=== PATIENT | female | born 1935 | race African-American/Black ===

== ENCOUNTER 2017-09-30 14:04 | Emergency (ER) | payer MEDICARE, MEDICAID ==
[2017-09-30 14:56] LABS: #Basophils 0.1 thou/uL (0.0-0.2); #Eosinphils 0.3 thou/uL (0.0-0.7); #Lymphocytes 2.3 thou/uL (1.20-3.40); #Monocytes 0.9 thou/uL (0.11-0.59); #Neutrophils 7.5 thou/uL (1.40-6.50); %Basophils 1.3 % (0.0-1.0); %Eosinophils 2.3 % (0.0-10.0); %Lymphocytes 20.6 % (21.0-51.0); %Monocytes 8.5 % (0.0-10.0); %Neutrophils 67.3 % (42.0-75.0); Hemoglobin 11.6 g/dL (12.0-16.0); Mean Corpuscular HGB CONC 33.4 g/dL (32.0-36.0); Platelet Count 205 thou/uL (130-400); Red Blood Cell (RBC) Count 3.99 mill/uL (4.20-5.40); White Blood Cell (WBC) Count 11.2 thou/uL (4.8-10.8)
[2017-09-30 15:02] LABS: INR-International Normal Ratio 1.1; PTT 26.9 SEC (22.9-36.1)
[2017-09-30 15:18] LABS: ALT (SGPT) 10 U/L (8-55); AST (SGOT) 18 U/L (5-34); Albumin 4.1 g/dL (3.4-4.8); Alkaline Phosphatase 59 U/L (40-150); Anion Gap 14 mmol/L (10-20); BUN (Urea Nitrogen) 20 mg/dL (9.8-20.1); Bilirubin, Total 0.3 mg/dL (0.2-1.2); Calc. Creatinine Clearance 0 mL/min (70-130); Calcium 10.2 mg/dL (7.8-10.44); Carbon Dioxide 26 mmol/L (23-31); Chloride 106 mmol/L (98-107); Estimated GFR-MDRD 59; Globulin 3.5 g/dL (2.4-3.5); Glucose 152 mg/dL (83-110); Potassium 4.6 mmol/L (3.5-5.1); Protein, Total 7.6 g/dL (6.0-8.3); Sodium 141 mmol/L (136-145)
[2017-09-30 15:22] LABS: CKMB 0.8 ng/mL (0-6.6); Troponin I Less than 0.010 ng/mL (< 0.028)
--- NOTE | 2017-09-30 15:27 | CT ---
CT HEAD NONCONTRAST: HISTORY: TIA. Altered mental status. FINDINGS: No comparison. There is no evidence of acute intracranial hemorrhage or infarct. Mild diffuse corti anjum atrophy and chronic ischemic small-vessel disease are apparent. There is no mass effect or shift of midline structures. Visualized paranasal sinuses remain well aerated. IMPRESSION: No acute intracranial abnormalities are demonstrated on noncontrast CT head. POS: [facility]
[2017-09-30] MEDS ORDERED: Acetaminophen 500 MG TAB ONE (16:39)
--- NOTE | 2017-09-30 16:44 | RAD ---
CHEST ONE VIEW 09/30/17 HISTORY: Numbness. COMPARISON: None. FINDINGS: Heart size is upper limits of normal. No focal air space consolidation, pneumothorax or effusion. No acute osseous abnormality. IMPRESSION: No acute intrathoracic abnormality. POS: [facility]
--- NOTE | 2017-09-30 16:47 | RAD ---
PELVIS ONE VIEW: 09/30/17 HISTORY: Right sided hip pain. COMPARISON: None. FINDINGS: Moderate to severe right sided degenerative disease of the hip. Moderate left sided degenerative dise ase. Mild degenerative disease of the SI joints and pubic symphysis. Moderate spondylosis lower lumba r spine. IMPRESSION: Moderate to severe right and moderate left sided hip degenerative changes. POS: [facility]
== END 2017-09-30 17:55 | disposition home or self-care (01) ==
LOC: ERS 14:04
DX: R29.898 Other symptoms and signs involving the musculoskeletal system (principal); M25.551 Pain in right hip; E11.9 Type 2 diabetes mellitus without complications; E78.5 Hyperlipidemia, unspecified; I10 Essential (primary) hypertension; Z87.891 Personal history of nicotine dependence; M19.90 Unspecified osteoarthritis, unspecified site; Z86.73 Personal history of transient ischemic attack (TIA), and cerebral infarction without residual deficits; Z79.4 Long term (current) use of insulin; Z79.899 Other long term (current) drug therapy
CPT/HCPCS: 36415; 36416; 70450; 71045; 72170; 80053; 82553; 84484; 85025; 85610; 85730; 93005

== ENCOUNTER 2017-10-01 17:44 | Inpatient (IN) | payer MEDICARE, MEDICAID ==
[2017-10-01 18:19] LABS: #Basophils 0.1 thou/uL (0.0-0.2); #Eosinphils 0.3 thou/uL (0.0-0.7); #Lymphocytes 3.1 thou/uL (1.20-3.40); #Neutrophils 5.8 thou/uL (1.40-6.50); %Basophils 1.1 % (0.0-1.0); %Lymphocytes 30.2 % (21.0-51.0); %Monocytes 9.6 % (0.0-10.0); %Neutrophils 56.2 % (42.0-75.0); Mean Corpuscular HGB CONC 32.4 g/dL (32.0-36.0); Mean Corpuscular Hemoglobin 28.1 pg (27.0-31.0); Mean Corpuscular Volume 86.8 fl (81.0-99.0); Mean Platelet Volume 9.9 fL (7.4-10.4); Platelet Count 210 thou/uL (130-400); Red Blood Cell (RBC) Count 3.92 mill/uL (4.20-5.40); White Blood Cell (WBC) Count 10.4 thou/uL (4.8-10.8)
[2017-10-01 18:25] LABS: INR-International Normal Ratio 1.1; PTT 25.4 SEC (22.9-36.1); Prothrombin Time 13.9 SEC (12.0-14.7)
[2017-10-01 18:40] LABS: ALT (SGPT) 11 U/L (8-55); AST (SGOT) 19 U/L (5-34); Alkaline Phosphatase 86 U/L (40-150); Anion Gap 15 mmol/L (10-20); BUN (Urea Nitrogen) 22 mg/dL (9.8-20.1); Bilirubin, Total 0.2 mg/dL (0.2-1.2); CK (CPK) 126 U/L (29-168); Calc. Creatinine Clearance 0 mL/min (70-130); Calcium 9.9 mg/dL (7.8-10.44); Carbon Dioxide 24 mmol/L (23-31); Chloride 107 mmol/L (98-107); Estimated GFR-MDRD 48; Globulin 3.4 g/dL (2.4-3.5); Glucose 118 mg/dL (83-110); Potassium 4.1 mmol/L (3.5-5.1); Protein, Total 7.4 g/dL (6.0-8.3); Sodium 142 mmol/L (136-145)
[2017-10-01 18:42] LABS: CKMB 1.2 ng/mL (0-6.6); Troponin I Less than 0.010 ng/mL (< 0.028)
--- NOTE | 2017-10-01 18:56 | PDOC.FPRHP ---
- History of Present Illness Chief Complaint: R sided numbness and weakness History of Present Illness: This is an 82 y/o F with PMHx of HTN, HLD, DM2, and prior CVA in 2016 who presents to the ED due to R sided weakness and numbness. The patient reports that on she began having numbness on her R face, arm, and leg, but it has gotten progressively worse. She has also developed weakness in her R leg and slurred speech. The patient also reports feeling like there is a film over her eyes. She is unable to walk well anymore due to this weakness. She came to the ED yesterday and had a CT scan done, but there were no deficits at that time so she was d/c'd from the ED with the CT normal. She feels like she has gotten worse since then. She has no residual deficits from her prior CVA. She does not usually have to walk with a cane, but she has been having to use it since these symptoms started. ED Course: The patient was evaluated in the ED by Dr. Herrera - Allergies/Adverse Reactions Allergies Allergy/AdvReac Type Severity Reaction Status Date / Time amitriptyline Allergy Verified 10/01/17 21:54 codeine Allergy Verified 10/01/17 21:54 - Home Medications Medication Instructions Recorded Confirmed Type Atorvastatin Calcium 20 mg PO DAILY 10/01/17 10/01/17 History Bumetanide 2 mg PO DAILY 10/01/17 10/01/17 History Carvedilol Phosphate [Carvedilol 20 mg PO DAILY 10/01/17 10/01/17 History ER] Clopidogrel Bisulfate [Clopidogrel] 75 mg PO DAILY 10/01/17 10/01/17 History Gabapentin 300 mg PO TID 10/01/17 10/01/17 History Lisinopril 10 mg PO DAILY 10/01/17 10/01/17 History Montelukast Sodium 10 mg PO DAILY 10/01/17 10/01/17 History NIFEdipine [Nifedipine ER] 120 mg PO DAILY 10/01/17 10/01/17 History hydrALAZINE HCl 100 mg PO TID 10/01/17 10/01/17 History predniSONE [Prednisone] 5 mg PO DAILY 10/01/17 10/01/17 History - History PMHx: 1. DM2 2. HTN 3. HLD 4. CVA in 2017 5. Arthritis 6. Seasonal Allergies PSHx: 1. Cholecystectomy 2. Hysterectomy FHx: Mom - DM2, Siblings - DM2 Social: Smoked for 2 years back in the 1960s, denies EtOH or drug use. Lives with her daughter. - Review of Systems General: denies: fever/chills, weight/appetite/sleep changes Eyes: reports: vision changes. denies: eye pain ENT: denies: nasal congestion, rhinorrhea Respiratory: denies: cough, shortness of breath Cardiovascular: denies: chest pain, edema Gastrointestinal: reports: constipation (chronic), abdominal pain (chronic). denies: nausea, vomiting Genitourinary: denies: dysuria, polyuria Skin: denies: rashes, lesions Musculoskeletal: denies: pain, tenderness Neurological: reports: numbness, weakness. denies: syncope, seizure - Vital signs BP: 154/58 HR: 53 RR: 20 Tmax: 98.5 Pox: 96% on RA Wt: 79.38 kg - Physical Exam Constitutional: NAD, awake, alert and oriented, well developed HEENT: normocephalic and atraumatic, PERRLA, EOMI, conjunctiva clear, grossly normal vision, grossly normal hearing, normal nasal mucosa, MMM, oropharynx clear (no teeth) Neck: supple, FROM -Heart: bradycardic, 3/6 systolic murmur with radiation to the carotids, no peripheral edema Lungs: CTAB, no respiratory distress, good air movement, no rales/rhonchi, no wheezing Abdomen: soft, non-tender, bowel sounds present, no masses/distention Musculoskeletal: normal structure, normal tone -Neurological: CN II-XII intact, decreased sensation on R face, upper extremity, and lower extremity. 3/5 strength on RLE, 5/5 strength on RUE, LUE, and LLE. GCS 15 Skin: good turgor, capillary refill <2 seconds Heme/Lymphatic: no unusual bruising or bleeding, no purpura Psychiatric: normal mood and affect, good judgment and insight, intact recent and remote memory FMR H&P: Results - Labs Result Diagrams: 10/01/17 18:10 10/01/17 18:10 Lab results: WBC 10.4 thou/uL (4.8-10.8) 10/01/17 18:10 Hgb 11.0 g/dL (12.0-16.0) L 10/01/17 18:10 Hct 34.0 % (36.0-47.0) L 10/01/17 18:10 MCV 86.8 fl (81.0-99.0) 10/01/17 18:10 Plt Count 210 thou/uL (130-400) 10/01/17 18:10 Neutrophils % 56.2 % (42.0-75.0) 10/01/17 18:10 Sodium 142 mmol/L (136-145) 10/01/17 18:10 Potassium 4.1 mmol/L (3.5-5.1) 10/01/17 18:10 Chloride 107 mmol/L (98-107) 10/01/17 18:10 Carbon Dioxide 24 mmol/L (23-31) 10/01/17 18:10 BUN 22 mg/dL (9.8-20.1) H 10/01/17 18:10 Creatinine 1.28 mg/dL (0.6-1.1) H 10/01/17 18:10 Glucose 118 mg/dL (83-110) H 10/01/17 18:10 Calcium 9.9 mg/dL (7.8-10.44) 10/01/17 18:10 Total Bilirubin 0.2 mg/dL (0.2-1.2) 10/01/17 18:10 AST 19 U/L (5-34) 10/01/17 18:10 ALT 11 U/L (8-55) 10/01/17 18:10 Alkaline Phosphatase 86 U/L (40-150) 10/01/17 18:10 Creatine Kinase 126 U/L (29-168) 10/01/17 18:10 CK-MB (CK-2) 1.2 ng/mL (0-6.6) 10/01/17 18:10 Serum Total Protein 7.4 g/dL (6.0-8.3) 10/01/17 18:10 Albumin 4.0 g/dL (3.4-4.8) 10/01/17 18:10 - EKG Interpretation EKG: sinus bradycardia, rate 48. old anterolateral infarct - Radiology Interpretation CT scan - head Status: image reviewed by me, report reviewed by me Additional comment: No acute intracranial abnormality, old lacunar infarct FMR H&P: A/P - Problem List (1) CVA (cerebral vascular accident) Current Visit: Yes Status: Suspected Code(s): I63.9 - CEREBRAL INFARCTION, UNSPECIFIED Qualifiers: CVA mechanism: unspecified Qualified Code(s): I63.9 - Cerebral infarction, unspecified (2) History of CVA (cerebrovascular accident) Current Visit: Yes Status: Acute Code(s): Z86.73 - PRSNL HX OF TIA (TIA), AND CEREB INFRC W/O RESID DEFICITS (3) DM2 (diabetes mellitus, type 2) Current Visit: Yes Status: Acute Qualifiers: Diabetes mellitus fur scraper insulin use: without fur scraper use Diabetes mellitus complication status: without complication Qualified Code(s): E11.9 - Type 2 diabetes mellitus without complications (4) HTN (hypertension) Current Visit: Yes Status: Acute Code(s): I10 - ESSENTIAL (PRIMARY) HYPERTENSION Qualifiers: Hypertension type: essential hypertension Qualified Code(s): I10 - Essential (primary) hypertension (5) HLD (hyperlipidemia) Current Visit: Yes Status: Acute Code(s): E78.5 - HYPERLIPIDEMIA, UNSPECIFIED Qualifiers: Hyperlipidemia type: unspecified Qualified Code(s): E78.5 - Hyperlipidemia , unspecified (6) CKD (chronic kidney disease) stage 3, GFR 30-59 ml/min Current Visit: Yes Status: Acute Code(s): N18.3 - CHRONIC KIDNEY DISEASE, STAGE 3 (MODERATE) (7) Sinus bradycardia Current Visit: Yes Status: Acute Code(s): R00.1 - BRADYCARDIA, UNSPECIFIED - Plan CVA, suspected Patient has symptoms of R sided numbness and RLE weakness as well as slurred speech - would likely be L MCA infarct. She has a h/o prior CVA in 2017 and is currently on plavix. Initial CT head negative. -MRI head -Carotid dopplers -Echo -Continue plavix -FLP -Will increase atorvastatin to high intensity -Neuro checks -Allow permissive HTN -Consult PT/OT/speech Sinus Bradycardia Likely 2/2 carvedilol use. -Will monitor on tele -Hold BB HTN Pt on several anti-hypertensives at home. -Will hold home meds for now and allow permissive HTN -Hydralazine and labetalol prn BP > 220/110 HLD -Check FLP -Increase atorvastatin to 40mg DM2 Pt not on any meds at home -Will check accuchecks ACHS, if abnormal then will discuss starting medication JOSÉ v CKD3 Unknown baseline, but slightly increased from yesterday -Will monitor -Avoid nephrotoxic agents VTE ppx: Lovenox Code Status: DNI Disposition/LOS: Obs on stroke, length of stay likely less than 48 hours FMR H&P: Upper Level - Pertinent history 82 yo F with PMH of HTN, DM3, HLD presents with persistent and worsening RLE weakness and numbness. Symptoms began on 09/29/17. Was seen at [facility] ER yesterday and sent home after evaluation revealed no acute CVA. Has had a stroke in the past. After going home yesterday, patient felt that her RLE and facial numbness, and RLE weakness were getting worse. Family noted that she was slurring her speech still today and dragging her right foot around the house. - Pertinent findings PE: T: 98.3 P: 50 BP: 154/58 RR: 20 95% on RA Gen: [place] female in NAD HEENT: PERRL, EOMI, MMM, no lymphadenopathy or thyromegaly CV: RRR no murmurs, distal pulses intact Pulm: CTAB, no wheezes or rhonchi Abd: soft, NT/ND, BS present, no masses or distention Ext: no cyanosis or edema MSK: SANTILLAN well, no joint or muscle pain or swelling Neuro: CN 2-12 intact, decreased sensation in face and RLE, decreased strength in RLE Skin: no rashes or lesions Psych: A&O x3, appropriate in conversation - Plan Date/Time: 10/01/17 1854 82 yo F here with RLE weakness. 1) Possible L MCA CVA: Obs on stroke, continue plavix. MRI in AM. Consult PT/ OT, stroke team. 2) HTN: Plan for permissive HTN for tonight, resume BP meds in AM. 3) Bradycardia: Possibly side effect of medication, will hold BB in AM. Consider Cards consult tomorrow if symptomatic. 4) DM2: not on any medications, check A1c 5) HLD: continue statin 6) JOSÉ: creatinine slightly bumped from 2 days ago, continue to trend I, [Panfilo Dyer], have evaluated this patient and agree with findings/plan as outlined by internet marketing specialist resident. Pertinent changes/additions are listed here.
--- NOTE | 2017-10-01 19:16 | CT ---
CT BRAIN WITHOUT CONTRAST: History: Worsening right sided weakness. Comparison: CT brain prior day. FINDINGS: No acute territorial infarct or hemorrhage. No midline shift or mass effect. Old lacunar infarcts. Mi ld atrophy. Calvarium is intact. Paranasal sinuses and mastoids are clear. IMPRESSION: No acute intracranial abnormality. POS: [facility]
[2017-10-01] MEDS ORDERED: Dextrose 5% in Water 1,000 ML IV PRN (22:05)
[2017-10-01] MEDS ORDERED: Acetaminophen 325 MG TAB PO PRN (22:05)
[2017-10-01] MEDS ORDERED: Dextrose 50% Abboject 50 ML SYRINGE SLOW IVP PRN (22:05)
[2017-10-01] MEDS ORDERED: Clopidogrel Bisulfate 75 MG TAB PO SCH (22:15)
[2017-10-01] MEDS ORDERED: Atorvastatin Calcium 40 MG TAB PO SCH (22:15)
[2017-10-01 22:21] LABS: Hemoglobin A1c 5.4 % (4.0-6.0)
[2017-10-01 22:22] LABS: Magnesium 2.3 mg/dL (1.6-2.6); Phosphorus 3.4 mg/dL (2.3-4.7)
[2017-10-01 23:56] VITALS: BMI 33.9
[2017-10-02 05:11] LABS: Anion Gap 12 mmol/L (10-20); BUN (Urea Nitrogen) 19 mg/dL (9.8-20.1); Calc. Creatinine Clearance 52 mL/min (70-130); Carbon Dioxide 27 mmol/L (23-31); Cardiac Risk 3.1 (Less than 4.5); Chloride 107 mmol/L (98-107); Cholesterol 149 mg/dl (< 200 Desired); Estimated GFR-MDRD 59; Glucose 97 mg/dL (83-110); HDL Cholesterol 48 mg/dL (>60 Neg Risk); LDL Cholesterol, Calculated 87 mg/dL; Potassium 3.9 mmol/L (3.5-5.1); Sodium 142 mmol/L (136-145); Triglycerides 71 mg/dL (Less than 150)
[2017-10-02 06:31] LABS: Band 2 % (5-11); Eosinophils 3 % (0-10); Hemoglobin 10.7 g/dL (12.0-16.0); Lymphocytes 37 % (21-51); MDiff Complete? YES; Mean Corpuscular HGB CONC 33.2 g/dL (32.0-36.0); Mean Corpuscular Hemoglobin 28.8 pg (27.0-31.0); Mean Corpuscular Volume 86.8 fl (81.0-99.0); Mean Platelet Volume 10.3 fL (7.4-10.4); Monocytes 5 % (0-10); Neutrophil 53 % (42-75); Platelet Count 202 thou/uL (130-400); RBC Distribution Width 13.1 % (11.5-14.5); Red Blood Cell (RBC) Count 3.72 mill/uL (4.20-5.40); White Blood Cell (WBC) Count 9.6 thou/uL (4.8-10.8)
--- NOTE | 2017-10-02 06:42 | PDOC.FM ---
- Subjective Subjective: Patient states that she has continued weakness and hard time finding words adn that her symptom are no better since it started 4 days ago. Stroke she had 1 year ago affected her left side which has recovered. She denies having pain, fever, SOB, chest pain. Nursing said that her last NIH scale was 3. - Objective MAR Reviewed: Yes Vital Signs & Weight: Vital Signs (12 hours) Temp Pulse Resp BP BP Pulse Ox 10/02/17 04:00 98.9 F 58 L 16 164/72 H 99 10/02/17 00:00 97.7 F 55 L 16 193/97 H 97 10/01/17 21:57 98.5 F 55 L 18 200/80 H 98 10/01/17 21:20 98.5 F 55 L 18 200/80 H 98 Weight Weight 84.187 kg I&O: 09/30/17 10/01/17 10/02/17 06:59 06:59 06:59 Intake Total 240 Balance 240 Result Diagrams: 10/02/17 04:36 10/02/17 04:36 <Clyde Scott - Last Filed: 10/02/17 09:21> - Objective Vital Signs & Weight: Vital Signs (12 hours) Temp Pulse Resp BP BP Pulse Ox 10/03/17 08:40 47 L 196/95 H 10/03/17 08:39 47 L 196/95 H 10/03/17 07:25 98.7 F 47 L 15 196/95 H 96 10/03/17 05:52 51 L 167/90 H 10/03/17 04:00 98.5 F 51 L 16 180/97 H 96 10/03/17 00:00 98.6 F 58 L 16 205/106 H 94 L I&O: 10/02/17 10/03/17 10/04/17 06:59 06:59 06:59 Intake Total 1750 Balance 1750 Result Diagrams: 10/03/17 04:27 10/03/17 04:27 <Jl Prater - Last Filed: 10/03/17 09:29> Phys Exam - Physical Examination Constitutional: NAD HEENT: moist MMs Neck: supple Respiratory: no wheezing, no rales, no rhonchi Cardiovascular: RRR 1/6 systolic murmur at KYAW sternal border Gastrointestinal: soft, non-tender, no distention Musculoskeletal: no edema Neurological: moves all 4 limbs CN II-XII grossly intact, 5/5 and 4/5 strength in left/rt leg respectively, Lymphatic: no nodes Psychiatric: normal affect, A&O x 3 Skin: no rash <Clyde Scott M - Last Filed: 10/02/17 09:21> Dx/Plan (1) CVA (cerebral vascular accident) Code(s): I63.9 - CEREBRAL INFARCTION, UNSPECIFIED Status: Suspected QualifierTitle: CVA mechanism: unspecified Qualified Code(s): I63.9 - Cerebral infarction, unspecified Plan: Today, will get carotid and cardiac US and brain MRI to help rule out stroke. Test so far are negative May benefit from rehab. Consulted neuro (2) JOSÉ (acute kidney injury) Code(s): N17.9 - ACUTE KIDNEY FAILURE, UNSPECIFIED Status: Acute Plan: Resolving issues (3) DM2 (diabetes mellitus, type 2) Status: Acute QualifierTitle: Diabetes mellitus termite helper insulin use: without senior living use Diabetes mellitus complication status: without complication Qualified Code(s): E11.9 - Type 2 diabetes mellitus without complications Plan: Glucose level appropriate. Patient has been diet controlled only in past and A1c is in good control. Plan to continue SSI on as needed basis. (4) HTN (hypertension) Code(s): I10 - ESSENTIAL (PRIMARY) HYPERTENSION Status: Acute QualifierTitle: Hypertension type: essential hypertension Qualified Code( s): I10 - Essential (primary) hypertension Plan: BP is going back to normal level. Initially elevated but permissive HTN on admission. Plan to restart BP med. (5) HLD (hyperlipidemia) Code(s): E78.5 - HYPERLIPIDEMIA, UNSPECIFIED Status: Acute QualifierTitle: Hyperlipidemia type: unspecified Qualified Code(s): E78.5 - Hyperlipidemia, unspecified Plan: HLD is not elevated. Continue statin. (6) Sinus bradycardia Code(s): R00.1 - BRADYCARDIA, UNSPECIFIED Status: Acute Plan: Her symptom is unlikely to be caused by sinus bradycardia, so at this time, hold BB vs continuing. If patient is asymptomatic can continue BB. <Clyde Scott M - Last Filed: 10/02/17 09:21> Attending Addendum - Attending Addendum Date/Time: 10/03/17927 I personally evaluated the patient and discussed the management with Dr. Scott. I agree with and repeated the History, Examination, Assessment and Plan documented above with any addition or exceptions noted below. No cp/sob/n/v/f/c. No dysarthria/asphasia on exam. Motor 5/5 on right, limited on LE by pain DTRs 2+ RUE, limited on RLE Antiplatelet, statin, restart home bp medications slowly until MRI results back. DVT ppx. <Jl Prater - Last Filed: 10/03/17 09:29>
[2017-10-02] MEDS: Enoxaparin Sodium 30 MG/0.3 ML SYRINGE SC SCH (08:59)
[2017-10-02] MEDS: predniSONE 5 MG TAB PO SCH (09:00)
[2017-10-02] MEDS: Clopidogrel Bisulfate 75 MG TAB PO SCH (09:00)
[2017-10-02] MEDS: Montelukast Sodium 10 mg Tablet PO SCH (09:00)
[2017-10-02] MEDS ORDERED: Enoxaparin Sodium 40 MG/0.4 ML SYRINGE SC SCH (09:00)
[2017-10-02] MEDS: Bumetanide 1 MG TAB PO SCH (09:00)
[2017-10-02] MEDS: Gabapentin 300 MG CAP PO SCH ×2 (09:00→20:03)
[2017-10-02] MEDS ORDERED: Gabapentin 300 MG CAP PO SCH (09:00)
--- NOTE | 2017-10-02 11:19 | MRI ---
MRI BRAIN WITH WITHOUT CONTRAST: Date: 10/02/17 HISTORY: Worsening right-sided weakness. FINDINGS: Correlation is made with the previous day's CT scan. There is a small focal area of restricted diffusion and lower signal on the ADC maps in the left ante rior thalamus. There are multiple foci of T2 prolongation in the periventricular white matter consistent with chroni c small vessel ischemic disease. No evidence of transcortical infarction, acute hemorrhage, midline s hift, or abnormal extra-axial fluid collections are seen. The visualized paranasal sinuses and mastoi d air cells are well aerated. IMPRESSION: Small recent (less than 1 week) infarction in the left thalamus. POS: [facility]
--- NOTE | 2017-10-02 12:00 | ULT ---
BILATERAL CAROTID DUPLEX ULTRASOUND: HISTORY: Stroke, CVA, worsening right-sided weakness. TECHNIQUE: Chiu scale ultrasound with color flow and spectral Doppler imaging of the extracranial carotid artery systems was performed bilaterally. FINDINGS: There is plaque formation on either side. The peak systolic velocity of the right ICA measures 72 cm/s with an end-diastolic velocity of 14 cm/ s and a systolic ratio of 1.07. The peak systolic velocity in the left ICA measures 81 cm/s with an end-diastolic velocity of 17 cm/s and a systolic ratio of 1.223. Flow in both vertebral arteries remains antegrade. IMPRESSION: No evidence of hemodynamically significant stenosis. POS: [facility]
[2017-10-02] MEDS: hydrALAZINE 20 MG/ML VIAL SLOW IVP PRN ×2 (13:04→23:28)
[2017-10-02] MEDS: hydrALAZINE 25 MG TAB PO SCH ×2 (14:31→20:03)
[2017-10-02] MEDS: HumaLOG 300 UNITS/3 ML VIAL SC SCH (17:07)
[2017-10-02] MEDS: Insulin Glargine 15 UNITS in Pre-Filled Syringe 1 EACH SC SCH (20:02)
[2017-10-02] MEDS: Atorvastatin Calcium 40 MG TAB PO SCH (20:03)
[2017-10-02] MEDS ORDERED: HumaLOG 300 UNITS/3 ML VIAL SC SCH (21:00)
--- NOTE | 2017-10-03 02:01 | CON ---
DATE OF CONSULTATION: 10/02/2017 REFERRING PROVIDER: Callum Herrera M.D. REASON FOR CONSULTATION: Right-sided weakness. HISTORY OF PRESENT ILLNESS: Ms. Daniel is a pleasant 82-year-old female, who has been c onsulted for evaluation of right-sided weakness and slurred speech. The patient reports that since , she started noticing numbness and tingling on the right face, arm, and leg. She also n oticed weakness in her right upper and right lower extremity. She had presented to the emergency [facility] on day before yesterday and at that time, she had a CT head without contrast done, which was appare ntly unremarkable and thus she was discharged to home. Yesterday, her symptoms continued to get wors e to the point that she was having difficulty with walking and getting out of the chair. This prompt ed her to present back to the [facility] for further evaluation. She currently denies any headache, chest pain, palpitation, dyspnea, vision changes, and dysphagia. She does notice numb ness and tingling on the corner of right side of the mouth as well as right upper and right lower ext remity. She feels her strength is improving today compared to yesterday. PAST MEDICAL HISTORY: Significant for hypertension, diabetes, hyperlipidemia, history of stroke in 2 017, arthritis. PAST SURGICAL HISTORY: Significant for cholecystectomy and hysterectomy. FAMILY HISTORY: Significant for diabetes. SOCIAL HISTORY: The patient denies smoking, alcohol use, or illicit drug use. She currently lives w ith her daughter. CURRENT MEDICATIONS: Please review MAR. ALLERGIES: Include AMITRIPTYLINE and CODEINE. REVIEW OF SYSTEMS: As mentioned above in HPI, otherwise negative. PHYSICAL EXAMINATION: VITAL SIGNS: Blood pressure 165/66, pulse of 48, temperature of 97.8, respirations of 16, O2 sats 97 % on room air. GENERAL: Well-developed, well-nourished -[place] female, in no apparent distress. RESPIRATORY: Clear to auscultation bilater ally. CARDIOVASCULAR: Regular rate and rhythm. NEUROLOGIC: Mental status: The patient is awake, alert, oriented x3. Speech and language: Fluent speech. Cranial nerves: Pupils are 3 mm and reactive. Visual bond are intact. External muscles are intact. No nystagmus is noted. Face is symmetric. Tongue and uvula are midline. Motor exam sh owed normal tone and bulk with 5/5 strength in both upper extremities. Sensory: Sensation is intact and symmetric. Deep tendon reflexes, 2+ reflexes in both upper and lower extremities. Babinski: P lantar responses flexion bilaterally. Coordination is intact to [id number]-thmcct and finger tappin g bilaterally. LABORATORY DATA: Reviewed, which included CBC, coag panel and CMP, which is significant for hemoglob in 10.7, hematocrit 32.3, otherwise unremarkable. IMAGING STUDIES: MRI brain without contrast was reviewed, which showed small acute left thalamic isc hemic infarct. MR angiogram of the head and carotid Doppler results were reviewed, which showed no a cute intracranial or extracranial vascular abnormality. IMPRESSION: 1. Acute left thalamic basal ganglia, severely infarct. 2. Hypertensive urgency. 3. Diabetes. 4. Hypercholesterolemia. Ms. Daniel is a pleasant 82-year-old -[place] female who presented with 3-day history of r ight-sided numbness and weakness. Her MRI does show an acute left thalamic stroke. This is likely s econdary to poorly controlled risk factors including blood pressure, diabetes, and cholesterol. I richardson ve advised her that she needs to maintain her blood pressure between 120 systolic to 130 systolic and 85-90 diastolic. I will recommend continue on Plavix 75 mg daily for secondary prevention. Continu e supportive care. Thank you for consultation.
[2017-10-03] MEDS ORDERED: hydrALAZINE 20 MG/ML VIAL SLOW IVP PRN (04:33)
[2017-10-03 05:13] LABS: Anion Gap 12 mmol/L (10-20); BUN (Urea Nitrogen) 21 mg/dL (9.8-20.1); Calc. Creatinine Clearance 54 mL/min (70-130); Calcium 9.8 mg/dL (7.8-10.44); Carbon Dioxide 28 mmol/L (23-31); Chloride 105 mmol/L (98-107); Estimated GFR-MDRD 61; Glucose 76 mg/dL (83-110); Potassium 3.7 mmol/L (3.5-5.1); Sodium 141 mmol/L (136-145)
[2017-10-03 06:11] LABS: Eosinophils 1 % (0-10); Hemoglobin 10.4 g/dL (12.0-16.0); Lymphocytes 38 % (21-51); MDiff Complete? YES; Mean Corpuscular HGB CONC 32.8 g/dL (32.0-36.0); Mean Corpuscular Hemoglobin 28.2 pg (27.0-31.0); Monocytes 10 % (0-10); Neutrophil 51 % (42-75); Platelet Count 199 thou/uL (130-400); Red Blood Cell (RBC) Count 3.67 mill/uL (4.20-5.40); White Blood Cell (WBC) Count 10.1 thou/uL (4.8-10.8)
--- NOTE | 2017-10-03 07:29 | PDOC.FM ---
- Subjective Subjective: Patient found in bed, sleeping comfortably. She was easily aroused and appear to be speaking more clearly then yesterday. She states she herself has not noticed any change. Denies fever, chill, pain, SOB, endorses right sided weakness. - Objective MAR Reviewed: Yes Vital Signs & Weight: Vital Signs (12 hours) Temp Pulse Resp BP Pulse Ox 10/03/17 05:52 51 L 167/90 H 10/03/17 04:00 98.5 F 51 L 16 180/97 H 96 10/03/17 00:00 98.6 F 58 L 16 205/106 H 94 L 10/02/17 20:00 97.7 F 52 L 16 169/68 H 95 I&O: 10/02/17 10/03/17 10/04/17 06:59 06:59 06:59 Intake Total 1750 Balance 1750 Result Diagrams: 10/03/17 04:27 10/03/17 04:27 <Clyde Scott - Last Filed: 10/03/17 09:13> - Objective Vital Signs & Weight: Vital Signs (12 hours) Temp Pulse Resp BP BP Pulse Ox 10/03/17 08:40 47 L 196/95 H 10/03/17 08:39 47 L 196/95 H 10/03/17 07:25 98.7 F 47 L 15 196/95 H 96 10/03/17 05:52 51 L 167/90 H 10/03/17 04:00 98.5 F 51 L 16 180/97 H 96 10/03/17 00:00 98.6 F 58 L 16 205/106 H 94 L I&O: 10/02/17 10/03/17 10/04/17 06:59 06:59 06:59 Intake Total 1750 Balance 1750 Result Diagrams: 10/03/17 04:27 10/03/17 04:27 <Jl Prater - Last Filed: 10/03/17 10:39> Phys Exam - Physical Examination Constitutional: NAD HEENT: moist MMs Neck: no nodes, supple Respiratory: no wheezing, no rales, no rhonchi Cardiovascular: RRR 2/6 systolic murmur Gastrointestinal: soft, non-tender, no distention Musculoskeletal: no edema Neurological: moves all 4 limbs Strength are more symetrical bilaterally. Lymphatic: no nodes Psychiatric: normal affect, A&O x 3 Skin: no rash <Clyde Scott M - Last Filed: 10/03/17 09:13> Dx/Plan (1) CVA (cerebral vascular accident) Code(s): I63.9 - CEREBRAL INFARCTION, UNSPECIFIED Status: Suspected QualifierTitle: CVA mechanism: unspecified Qualified Code(s): I63.9 - Cerebral infarction, unspecified Plan: MRI concerning for left thalamus stroke Appreciate neurology consult and their rec to continue current HTN, HLD and antiplatlet medication Plan to consult CM for rehab placement. Increase BP control (2) JOSÉ (acute kidney injury) Code(s): N17.9 - ACUTE KIDNEY FAILURE, UNSPECIFIED Status: Acute Plan: Resolving issue, is at baseline. (3) DM2 (diabetes mellitus, type 2) Status: Acute QualifierTitle: Diabetes mellitus correction insulin use: without correction use Diabetes mellitus complication status: without complication Qualified Code(s): E11.9 - Type 2 diabetes mellitus without complications Plan: Glucose level appropriate. Apparently patient did take medication but had not disclosed it. Restarted her on home insulin (4) HTN (hypertension) Code(s): I10 - ESSENTIAL (PRIMARY) HYPERTENSION Status: Acute QualifierTitle: Hypertension type: essential hypertension Qualified Code( s): I10 - Essential (primary) hypertension Plan: BP mildly elevated. Patient has been restarted on home med but did not received some of her schedule doses yet. Has only received full dose of hydralazine so far. Plan today for her to receive all home med except carvedilol. (5) HLD (hyperlipidemia) Code(s): E78.5 - HYPERLIPIDEMIA, UNSPECIFIED Status: Acute QualifierTitle: Hyperlipidemia type: unspecified Qualified Code(s): E78.5 - Hyperlipidemia, unspecified Plan: HLD is not elevated. Continue statin. (6) Sinus bradycardia Code(s): R00.1 - BRADYCARDIA, UNSPECIFIED Status: Acute Plan: Patient continue to have bradycardia, low of 48, usually in low 50. Will continue to hold carvedilol at this time. <Clyde Scott - Last Filed: 10/03/17 09:13> Attending Addendum - Attending Addendum Date/Time: 10/03/17 1037 I personally evaluated the patient and discussed the management with Dr. Scott. I agree with and repeated the History, Examination, Assessment and Plan documented above with any addition or exceptions noted below. Doing well this AM, neuro exam unchanged from yesterday. Ischemic stroke. Neuro consulted. antiplatelet + statin. HTN. Restarted all home medications Asymptomatic bradycardia. At times @ 40 bpm. Will d/w cardiology. PT evaluated, will need rehab. <Jl Prater - Last Filed: 10/03/17 10:39>
[2017-10-03] MEDS: NIFEdipine XL 60 MG TAB PO SCH (08:39)
[2017-10-03] MEDS: Bumetanide 1 MG TAB PO SCH (08:39)
[2017-10-03] MEDS: predniSONE 5 MG TAB PO SCH (08:40)
[2017-10-03] MEDS: hydrALAZINE 25 MG TAB PO SCH ×3 (08:40→22:12)
[2017-10-03] MEDS: Clopidogrel Bisulfate 75 MG TAB PO SCH (08:40)
[2017-10-03] MEDS: Gabapentin 300 MG CAP PO SCH ×2 (08:40→22:12)
[2017-10-03] MEDS: Montelukast Sodium 10 mg Tablet PO SCH (08:41)
[2017-10-03] MEDS ORDERED: Lisinopril 20 MG TAB PO SCH (09:00)
[2017-10-03] MEDS: Enoxaparin Sodium 30 MG/0.3 ML SYRINGE SC SCH (09:16)
[2017-10-03] MEDS: HumaLOG 300 UNITS/3 ML VIAL SC SCH ×2 (12:08→18:17)
--- NOTE | 2017-10-03 12:39 | PQF ---
DATE: 10-03-17 ATTN: DR. BLAINE ROSE Please exercise your independent, professional judgment in responding to the clarification form. Clinical indicators are provided on the bottom of this form for your review Please check appropriate box(s): [ ] Primary/Essential Hypertension [ ] Emergency [ ] Crisis [ ] Transient Hypertension [ ] Other diagnosis [ ] Unable to determine In addition, please specify: Present on Admission (POA): [ ] Yes [ ] No [ ] Unable to determine For continuity of documentation, please document condition throughout progress notes and discharge summary. Thank You. CLINICAL INDICATORS - SIGNS / SYMPTOMS / LABS ER: BP 132/100 BP: 10-02-17: 214/88, 209/77, 208/108, 226/118, 212/91, BP: 10-03-17: 205/106, 200/73 H&P: THE PATIENT ALSO REPORTS FEELING LIKE THERE IS A FILM OVER HER EYES. RISK FACTORS: H&P: HTN, CKD 3, DM 2, TREATMENTS: H&P: HYDRALAZINE AND LABETALOL PRN BP>220/110 CARDIAC MONITORING (This form is maintained as a part of the permanent medical record) 2015 [employer]. All Rights Reserved CLEMENTINE De La [email or web address] Office: [phone] Hypertensive urgency, present on admission. We are treating as permissive hypertension initially when it was felt she had an acute stroke, and pressures > 220 came down quickly according to my residents and so did not require treatment. She had her home medications restarted today. She has not mentioned any vision problems to me for 2 days. She is on telemetry. She has had bradycardia, for which we were initially avoiding beta blockers, and discussed with cardiology who will see her as an outpatient. GURU
[2017-10-03] MEDS ORDERED: Hydrochlorothiazide 25 MG TAB PO SCH (13:30)
[2017-10-03] MEDS: Bisacodyl 5 MG TAB PO PRN (15:04)
[2017-10-03] MEDS: Insulin Glargine 15 UNITS in Pre-Filled Syringe 1 EACH SC SCH (22:11)
[2017-10-03] MEDS: Atorvastatin Calcium 40 MG TAB PO SCH (22:12)
[2017-10-04 04:40] LABS: #Basophils 0.1 thou/uL (0.0-0.2); #Eosinphils 0.3 thou/uL (0.0-0.7); #Lymphocytes 3.6 thou/uL (1.20-3.40); #Monocytes 0.9 thou/uL (0.11-0.59); #Neutrophils 6.4 thou/uL (1.40-6.50); %Basophils 0.5 % (0.0-1.0); %Eosinophils 2.3 % (0.0-10.0); %Lymphocytes 31.9 % (21.0-51.0); %Monocytes 8.3 % (0.0-10.0); Hemoglobin 10.4 g/dL (12.0-16.0); Mean Corpuscular HGB CONC 33.5 g/dL (32.0-36.0); Mean Corpuscular Volume 86.4 fl (81.0-99.0); Mean Platelet Volume 9.5 fL (7.4-10.4); Platelet Count 197 thou/uL (130-400); Red Blood Cell (RBC) Count 3.58 mill/uL (4.20-5.40); White Blood Cell (WBC) Count 11.2 thou/uL (4.8-10.8)
[2017-10-04 04:49] LABS: Anion Gap 12 mmol/L (10-20); BUN (Urea Nitrogen) 19 mg/dL (9.8-20.1); Calc. Creatinine Clearance 53 mL/min (70-130); Calcium 9.7 mg/dL (7.8-10.44); Carbon Dioxide 28 mmol/L (23-31); Chloride 103 mmol/L (98-107); Estimated GFR-MDRD 60; Glucose 86 mg/dL (83-110); Potassium 3.4 mmol/L (3.5-5.1); Sodium 140 mmol/L (136-145)
[2017-10-04] MEDS ORDERED: Lisinopril 20 MG TAB PO SCH ×2 (07:27→09:00)
[2017-10-04] MEDS ORDERED: Potassium Chloride 20 MEQ TAB PO SCH (08:00)
--- NOTE | 2017-10-04 08:42 | PDOC.FM ---
- Subjective Subjective: Patient feels well today. She denies headache, fever, pain, SOB, syncope. She says she been out of bed and working with PT. - Objective MAR Reviewed: Yes Vital Signs & Weight: Vital Signs (12 hours) Temp Pulse Resp BP BP Pulse Ox 10/04/17 07:53 98.2 F 53 L 16 151/80 H 95 10/04/17 03:58 98.6 F 59 L 18 140/72 97 10/04/17 00:00 98.6 F 61 18 147/82 H 93 L 10/03/17 23:49 98.6 F 61 18 147/82 H 93 L 10/03/17 22:12 57 L 161/68 H I&O: 10/03/17 10/04/17 10/05/17 06:59 06:59 06:59 Intake Total 1750 1040 Balance 1750 1040 Result Diagrams: 10/04/17 04:31 10/04/17 04:31 <SoniaClyde M - Last Filed: 10/04/17 09:13> - Objective Vital Signs & Weight: Vital Signs (12 hours) Temp Pulse Pulse Resp BP BP BP 10/04/17 09:24 67 150/81 H 10/04/17 08:47 98.2 F 53 L 16 10/04/17 08:46 53 L 151/80 H 10/04/17 08:45 151/80 H 10/04/17 07:53 98.2 F 53 L 16 151/80 H 10/04/17 03:58 98.6 F 59 L 18 140/72 10/04/17 00:00 98.6 F 61 18 147/82 H 10/03/17 23:49 98.6 F 61 18 147/82 H Pulse Ox 10/04/17 09:24 10/04/17 08:47 95 10/04/17 08:46 10/04/17 08:45 10/04/17 07:53 95 10/04/17 03:58 97 10/04/17 00:00 93 L 10/03/17 23:49 93 L I&O: 10/03/17 10/04/17 10/05/17 06:59 06:59 06:59 Intake Total 1750 1040 Balance 1750 1040 Result Diagrams: 10/04/17 04:31 10/04/17 04:31 <Jl Prater - Last Filed: 10/04/17 11:06> Phys Exam - Physical Examination Constitutional: NAD HEENT: moist MMs Neck: supple Respiratory: no wheezing, no rales, no rhonchi, clear to auscultation bilateral Cardiovascular: RRR 2/6 systolic murmur previously noted Gastrointestinal: soft, non-tender, no distention Musculoskeletal: no edema Neurological: non-focal, moves all 4 limbs Lymphatic: no nodes Psychiatric: A&O x 3 Skin: no rash <Ly,Clyde M - Last Filed: 10/04/17 09:13> Dx/Plan (1) CVA (cerebral vascular accident) Code(s): I63.9 - CEREBRAL INFARCTION, UNSPECIFIED Status: Suspected QualifierTitle: CVA mechanism: unspecified Qualified Code(s): I63.9 - Cerebral infarction, unspecified Plan: MRI concerning for left thalamus stroke Appreciate neurology consult and their rec to continue current HTN, HLD and antiplatlet medication Plan to consult CM for rehab placement. Possible placement at inpatient rehab in works. Increase BP control (2) DM2 (diabetes mellitus, type 2) Status: Acute QualifierTitle: Diabetes mellitus terminal supervisor insulin use: without penitentiary use Diabetes mellitus complication status: without complication Qualified Code(s): E11.9 - Type 2 diabetes mellitus without complications Plan: Glucose level appropriate. On home insulin (3) HTN (hypertension) Code(s): I10 - ESSENTIAL (PRIMARY) HYPERTENSION Status: Acute QualifierTitle: Hypertension type: essential hypertension Qualified Code( s): I10 - Essential (primary) hypertension Plan: BP mildly elevated. Patient has been restarted on all home medication. Improvement, but still some elevation. Started her on higher dose of Lisinopril. Patient already on loop bumex, so will hold on adding HCTZ Plan today for her to receive all home med except carvedilol. (4) HLD (hyperlipidemia) Code(s): E78.5 - HYPERLIPIDEMIA, UNSPECIFIED Status: Acute QualifierTitle: Hyperlipidemia type: unspecified Qualified Code(s): E78.5 - Hyperlipidemia, unspecified Plan: HLD is not elevated. Continue statin. (5) Sinus bradycardia Code(s): R00.1 - BRADYCARDIA, UNSPECIFIED Status: Acute Plan: Patient continue to have bradycardia, low of 48, usually in low 50. Will continue to hold carvedilol at this time. (6) JOSÉ (acute kidney injury) Code(s): N17.9 - ACUTE KIDNEY FAILURE, UNSPECIFIED Status: Acute Plan: Resolving issue, is at baseline. <Clyde Scott - Last Filed: 10/04/17 09:13> Attending Addendum - Attending Addendum Date/Time: 10/04/17 4745 I personally evaluated the patient and discussed the management with Dr. Scott. I agree with and repeated the History, Examination, Assessment and Plan documented above with any addition or exceptions noted below. Pt doing well this morning. Awaiting placement. Stroke -neuro following -antiplatelet, statin HTN -restarted home meds DM -sugars relatively well controlled Eliud -d/w cardiology, they will see as an outpatient DVT/GI ppx <Jl Prater - Last Filed: 10/04/17 11:06>
[2017-10-04] MEDS: Gabapentin 300 MG CAP PO SCH (08:44)
[2017-10-04] MEDS: Enoxaparin Sodium 30 MG/0.3 ML SYRINGE SC SCH (08:44)
[2017-10-04] MEDS: Clopidogrel Bisulfate 75 MG TAB PO SCH (08:44)
[2017-10-04] MEDS: Bisacodyl 5 MG TAB PO PRN (08:44)
[2017-10-04] MEDS: Bumetanide 1 MG TAB PO SCH (08:45)
[2017-10-04] MEDS: Montelukast Sodium 10 mg Tablet PO SCH (08:45)
[2017-10-04] MEDS: HumaLOG 300 UNITS/3 ML VIAL SC SCH (08:45)
[2017-10-04] MEDS: predniSONE 5 MG TAB PO SCH (08:45)
[2017-10-04] MEDS: NIFEdipine XL 60 MG TAB PO SCH (08:46)
[2017-10-04] MEDS: hydrALAZINE 25 MG TAB PO SCH (08:46)
[2017-10-04] MEDS ORDERED: Hydrochlorothiazide 25 MG TAB PO SCH (09:00)
[2017-10-04 11:56] VITALS: BP 144/74; TEMP 98
[2017-10-05] MEDS ORDERED: Enoxaparin Sodium 40 MG/0.4 ML SYRINGE SC SCH (09:00)
== END 2017-10-04 14:37 | DRG 65 ==
LOC: ERS 17:44 → ERHOLD 17:55 → 2SE 20:59 → OBSVTOIN 10-02 13:39
PROVIDERS: ADMIT Family Medicine; ATTEND Family Medicine
DX: I63.9 Cerebral infarction, unspecified (principal); N17.9 Acute kidney failure, unspecified; I16.0 Hypertensive urgency; E78.00 Pure hypercholesterolemia, unspecified; E11.22 Type 2 diabetes mellitus with diabetic chronic kidney disease; E78.5 Hyperlipidemia, unspecified; R00.1 Bradycardia, unspecified; M19.90 Unspecified osteoarthritis, unspecified site; I12.9 Hypertensive chronic kidney disease with stage 1 through stage 4 chronic kidney disease, or unspecified chronic kidney disease; N18.3 Chronic kidney disease, stage 3 (moderate); Z86.73 Personal history of transient ischemic attack (TIA), and cerebral infarction without residual deficits; Z90.49 Acquired absence of other specified parts of digestive tract; Z90.710 Acquired absence of both cervix and uterus; Z88.5 Allergy status to narcotic agent; Z88.8 Allergy status to other drugs, medicaments and biological substances
CPT/HCPCS: 36415; 36416; 70450; 70551; 71045; 72170; 80048; 80053; 80061; 82550; 82553; 83036; 83735; 84100; 84443; 84484; 85025; 85610; 85730; 93005; 93306; 93880; A4216; G8978-GP-CL; G8979-GP-CJ; G8987-GO-CL; G8988-GO-CJ; G8996-GN-CI; G8997-GN-CI; J0360; J1650

== ENCOUNTER 2018-11-03 15:35 | Observation (INO) | payer MEDICARE, MEDICAID ==
--- NOTE | 2018-11-03 16:20 | RAD ---
Exam: Chest one view HISTORY:Weakness Comparison: 09/30/2017 FINDINGS: Lungs: Interstitial prominence bilaterally Cardiac silhouette:Enlarged Pulmonary vessels: Mild engorgement Pleural Spaces: Clear Pneumothorax: None Osseous abnormalities: None of acuity. IMPRESSION: Evidence of CHF with mild fluid overload
[2018-11-03 16:32] LABS: #Basophils 0.1 thou/uL (0.0-0.2); #Eosinphils 0.2 thou/uL (0.0-0.7); #Lymphocytes 2.2 thou/uL (1.20-3.40); #Neutrophils 6.8 thou/uL (1.40-6.50); %Eosinophils 2.3 % (0.0-10.0); %Lymphocytes 21.1 % (21.0-51.0); %Monocytes 9.3 % (0.0-10.0); %Neutrophils 66.3 % (42.0-75.0); Hemoglobin 10.6 g/dL (12.0-16.0); Mean Corpuscular HGB CONC 32.6 g/dL (32.0-36.0); Mean Corpuscular Hemoglobin 28.6 pg (27.0-31.0); Mean Corpuscular Volume 87.6 fL (78.0-98.0); Platelet Count 180 thou/uL (130-400); RBC Distribution Width 12.1 % (11.5-14.5); Red Blood Cell (RBC) Count 3.71 mill/uL (4.20-5.40); White Blood Cell (WBC) Count 10.3 thou/uL (4.8-10.8)
[2018-11-03 16:36] LABS: PTT 24.2 SEC (22.9-36.1); Prothrombin Time 13.2 SEC (12.0-14.7)
--- NOTE | 2018-11-03 16:39 | CT ---
CT Brain WO Con: 11/03/2018 4:07 PM CLINICAL HISTORY: Slurred speech. COMPARISON: 10/01/2017 FINDINGS: Hemorrhage: None. Ventricular system: Normal in size and morphology for the patient's age. Cerebral parenchyma: Microvascular ischemic disease. Stable cavitary lacunar infarctions of left basa l ganglia and punctate hypoattenuation of the right lentiform nucleus. Midline shift: None. Mass: No mass effect. Calvarium: Normal. Visualized Paranasal sinuses: Clear. IMPRESSION: No acute intracranial abnormalities. Chronic microvascular ischemic disease.
[2018-11-03 16:51] LABS: ALT (SGPT) 10 U/L (8-55); AST (SGOT) 18 U/L (5-34); Albumin 4.2 g/dL (3.4-4.8); Alkaline Phosphatase 67 U/L (40-150); Anion Gap 14 mmol/L (10-20); BUN (Urea Nitrogen) 33 mg/dL (9.8-20.1); Bilirubin, Total 0.2 mg/dL (0.2-1.2); CK (CPK) 142 U/L (29-168); Calc. Creatinine Clearance 0 mL/min (70-130); Calcium 10.3 mg/dL (7.8-10.44); Carbon Dioxide 28 mmol/L (23-31); Chloride 100 mmol/L (98-107); Estimated GFR-MDRD 44; Globulin 3.3 g/dL (2.4-3.5); Glucose 104 mg/dL (83-110); Magnesium 2.5 mg/dL (1.6-2.6); Potassium 3.7 mmol/L (3.5-5.1); Protein, Total 7.5 g/dL (6.0-8.3); Sodium 138 mmol/L (136-145)
[2018-11-03] MEDS ORDERED: Aspirin Chewable 81 MG TAB ONE (17:41)
[2018-11-03 18:53] LABS: Bilirubin Negative (Negative); Blood, Urine Negative (Negative); Clarity Clear (Clear); Glucose, Urine (Dipstick) Normal (Negative); Leukocyte 75 Leu/uL (Negative); Nitrite Negative (Negative); Protein, Urine (Dipstick) Negative (Neg-Trace); RBC/HPF 0-3 HPF (0-3); Squamous Epithelial 0-3 HPF (0-3); Urobilinogen Normal mg/dL (Less than 2)
[2018-11-03 19:06] LABS: Bacteria/HPF None Seen HPF (None Seen)
[2018-11-03] MEDS ORDERED: Ondansetron PF 4 MG/2 ML Vial IVP PRN (20:38)
[2018-11-03] MEDS ORDERED: Ondansetron ODT 4 MG TAB SL PRN (20:38)
[2018-11-03] MEDS ORDERED: Sodium Chloride 0.9% 1,000 ML IV SCH (20:38)
[2018-11-04 08:16] LABS: #Basophils 0.1 thou/uL (0.0-0.2); #Eosinphils 0.2 thou/uL (0.0-0.7); #Lymphocytes 2.7 thou/uL (1.20-3.40); #Monocytes 0.8 thou/uL (0.11-0.59); %Basophils 0.7 % (0.0-1.0); %Eosinophils 2.5 % (0.0-10.0); %Lymphocytes 27.5 % (21.0-51.0); %Monocytes 8.1 % (0.0-10.0); %Neutrophils 61.2 % (42.0-75.0); Hemoglobin 9.9 g/dL (12.0-16.0); Mean Corpuscular HGB CONC 33.1 g/dL (32.0-36.0); Mean Corpuscular Hemoglobin 29.4 pg (27.0-31.0); Mean Corpuscular Volume 88.7 fL (78.0-98.0); Mean Platelet Volume 9.8 fL (7.4-10.4); Platelet Count 217 thou/uL (130-400); RBC Distribution Width 12.5 % (11.5-14.5); Red Blood Cell (RBC) Count 3.35 mill/uL (4.20-5.40); White Blood Cell (WBC) Count 9.8 thou/uL (4.8-10.8)
[2018-11-04 08:28] LABS: Anion Gap 13 mmol/L (10-20); BUN (Urea Nitrogen) 31 mg/dL (9.8-20.1); Calc. Creatinine Clearance 41 mL/min (70-130); Calcium 10.1 mg/dL (7.8-10.44); Carbon Dioxide 28 mmol/L (23-31); Cardiac Risk 3.3 (Less than 4.5); Chloride 104 mmol/L (98-107); Cholesterol 134 mg/dl (< 200 Desired); Estimated GFR-MDRD 48; Glucose 107 mg/dL (83-110); HDL Cholesterol 41 mg/dL (>60 Neg Risk); LDL Cholesterol, Calculated 79 mg/dL; Potassium 3.8 mmol/L (3.5-5.1); Sodium 141 mmol/L (136-145); Triglycerides 72 mg/dL (Less than 150)
[2018-11-04] MEDS ORDERED: Dextrose 50% Abboject 50 ML SYRINGE SLOW IVP PRN (08:45)
[2018-11-04] MEDS ORDERED: HumaLOG 300 UNITS/3 ML VIAL SC PRN (08:45)
[2018-11-04] MEDS ORDERED: Dextrose 5% in Water 1,000 ML IV PRN (08:45)
[2018-11-04] MEDS ORDERED: Bisacodyl 5 MG TAB PO PRN (08:46)
[2018-11-04] MEDS ORDERED: Acetaminophen 650 MG Suppository PR PRN (08:46)
[2018-11-04] MEDS ORDERED: Senokot S 8.6-50 MG TAB PO PRN (08:46)
[2018-11-04] MEDS ORDERED: Non-Formulary Item 1 EACH (Bumetanide [Bumetanide] 2 MG) PO SCH (09:00)
[2018-11-04] MEDS ORDERED: Famotidine 20 MG TAB PO SCH (09:00)
[2018-11-04] MEDS ORDERED: Furosemide 20 MG/2 ML VIAL SLOW IVP SCH (09:00)
[2018-11-04] MEDS: HumaLOG 300 UNITS/3 ML VIAL SC SCH ×2 (09:07→18:30)
[2018-11-04] MEDS: Gabapentin 300 MG CAP PO SCH ×3 (09:09→21:38)
[2018-11-04] MEDS: Bumetanide 1 MG TAB PO SCH (09:09)
[2018-11-04] MEDS: Clopidogrel Bisulfate 75 MG TAB PO SCH (09:10)
[2018-11-04] MEDS: Amlodipine 10 MG TAB PO SCH (09:15)
[2018-11-04] MEDS: Lisinopril 20 MG TAB PO SCH (09:16)
--- NOTE | 2018-11-04 09:52 | HP ---
PRIMARY CARE PHYSICIAN: Sergio Badillo. CHIEF COMPLAINT: Generalized weakness and right facial numbness. HISTORY OF PRESENT ILLNESS: Ms. Daniel is an 83-year-old woman, who presents with complaints of feeling generally weak since Monday. The patient states she has felt unwell for the last 3 days. She is usually fully independent and takes care of her daughter, who has Down syndrome, but more recently has found it difficult to continue her usual activities. She reports having new right-sided headache and numbness to the right side of her face. She reported to the emergency department physicians that she had difficulty finding her words. Unclear when her symptoms are started, she denies any trauma or head injuries. Denies having any vision changes. When asked about slurred speech, she states she just felt too weak to talk. She reports having a cough that has progressively worsened over the last 3 months, nonproductive. She states she feels congested, but unable to bring the phlegm up. Denies ever noting any hemoptysis. Reports having some chest discomfort in the sternum, which is tender to palpation. Also reports generalized abdominal discomfort and has not had bowel movement since . She normally manages her bowel movements with daily Linzess. At present, she denies any chest pain or shortness of breath. Reports feeling slightly stronger than she felt yesterday. PAST MEDICAL HISTORY: 1. Diabetes mellitus type 2. 2. Hypertension. 3. Hyperlipidemia. 4. Osteoarthritis. 5. CVA in 2017. PAST SURGICAL HISTORY: 1. Cholecystectomy. 2. Hysterectomy. SOCIAL HISTORY: The patient denies any tobacco use, though she did smoke previously greater than 10 years ago. Denies any alcohol use or illicit drug use. ALLERGIES: 1. AMITRIPTYLINE. 2. CODEINE PHOSPHATE. CURRENT MEDICATIONS: 1. Amlodipine. 2. Atorvastatin. 3. Bumetanide. 4. Clopidogrel. 5. Fluticasone. 6. Gabapentin. 7. Humalog. 8. Hydralazine. 9. Hydrochlorothiazide. 10. Lantus. 11. Linaclotide. 12. Lisinopril. PHYSICAL EXAMINATION: GENERAL: The patient appears well-developed, well-nourished, and is in no acute distress. She is found resting comfortably in bed. VITAL SIGNS: Temperature 97.8, pulse 52, respirations 18, O2 saturation 97% on room air, blood pressure 144/66. HEENT: Normocephalic and atraumatic. The patient reports tenderness to the right mu-ism and right TMJ. Does not appear to be any significant pain upon palpation. NECK: Supple. No nuchal rigidity. Reports discomfort in her neck with range of motion, but still has full range of motion without any limitations. No tenderness to the cervical spine on palpation. No lymphadenopathy. LUNGS: Clear to auscultation bilaterally. No wheezes, rales, or rhonchi. Reduced breath sounds at the bilateral bases. CARDIAC: Notable for a murmur. Slight chest wall tenderness to palpation of the lower sternum. ABDOMEN: Soft, nontender, although she does report mild generalized discomfort. This is not worse on palpation and nondistended. Normoactive bowel sounds present. EXTREMITIES: No lower leg swelling or edema. NEUROLOGIC: Alert and oriented x3. Speech is normal. Facial movements normal. The patient reports slightly reduced sensation to the right side of her face. No tongue deviation. Power 5/5 in all limbs with no altered sensation in the upper and lower extremities. No past-pointing. LABORATORY DATA: Notable for elevated BUN of 33 and creatinine of 1.38, yesterday and a GFR 44, which is slightly worse from baseline. Electrolytes and LFTs unremarkable. Troponin negative. Urinalysis notable for leukocyte esterase, and white blood cells 11 to 20, no bacteria, no nitrites. IMAGING DATA: Chest x-ray showed CHF with mild fluid overload. CT brain showed chronic microvascular ischemic disease. Otherwise, no acute findings. IMPRESSION AND PLAN: Ms. Daniel is a very pleasant 83-year-old woman, who is being referred for management of the following. 1. Transient ischemic attack/cerebrovascular accident, rule out. The patient continues with right-sided facial numbness. Otherwise, no neuro deficits on exam. Neurology consult has been requested. An MRI of the brain has been ordered. We will continue to monitor. We will add on carotid Dopplers. 2. Generalized weakness. The patient states she has felt generally unwell for the last 3 days and states she has pain associated with the numbness on the right side of her head. We will rule out possibility of giant cell arteritis. CRP and ESR added on. We will also rule out any underlying infection. Urine culture and respiratory viral panel added on. 3. Congestive heart failure exacerbation. The patient noted to have mild fluid overload on chest x-ray. We will give Lasix 20 mg IV x1. We will gently diurese with Lasix 20 mg IV x1 given her renal function. No edema or crackles on exam. Echocardiogram already ordered as part of CVA rule out. 4. Diabetes mellitus type 2. We will resume home medications. We will also initiate insulin sliding scale. Monitor glucose. 5. Gastrointestinal prophylaxis. 6. Deep venous thrombosis prophylaxis with mechanical sequential compression devices. 7. Code status, full. Her surrogate decision maker is her daughter, Wilda Vernon. The patient's case will be discussed with Dr. Mohamud for further recommendations. Job ID: [id number]
--- NOTE | 2018-11-04 10:42 | CON ---
DATE OF CONSULTATION: 11/04/2018 CONSULTING PHYSICIAN: Hospitalist Service. IMPRESSION: 1. Possible lacunar stroke with subjective complaints of right-sided weakness. 2. Hypertension. 3. Diabetes. 4. Hyperlipidemia. PLAN: 1. Consider switching to Aggrenox if a stroke is confirmed. 2. Continue statin. HISTORY OF PRESENT ILLNESS: Ms. Daniel is an 83-year-old woman with a past history of a stroke workup done in 2018. She had a normal ejection fraction of 60% to 65%. Her carotid ultrasound did not show any evidence of stenosis. She did not have an MRI of the brain at that time. She presented this time with the same complaints of right-sided weakness and slurred speech. She was taking Plavix prior to admission. She reports that when she was on a combination with aspirin, it caused too much bruising. Her symptoms have improved. She has been able to walk to the bathroom independently. She has not had any problem swallowing. She still feels like she is a bit weakened from the event. PAST MEDICAL HISTORY: As listed above. ALLERGIES: AMITRIPTYLINE, CODEINE. FAMILY HISTORY: Noncontributory. MEDICATION: List reviewed. REVIEW OF SYSTEMS: Ten-system review of systems is otherwise negative. PHYSICAL EXAMINATION: VITAL SIGNS: Blood pressure 144/66, respirations 18, pulse 52, temperature 97.8. HEENT: Pupils equal. Conjunctivae clear. Oropharynx clear. NECK: Supple. No lymphadenopathy. EXTREMITIES: No cyanosis or edema. NEUROLOGIC: She is alert and cooperative. Her speech was fluent and clear. No facial asymmetry was present. Did not elicit any fix or drift on arm roll testing. Sensation was intact to light touch. No abnormal movements were seen. Gait was not tested. DIAGNOSTIC STUDIES: EKG shows sinus rhythm. CT of the brain done on admission did not show any acute ischemic changes. Only some chronic microvascular disease. SUMMARY: This is an elderly lady with complaints of transient right-sided weakness, which appears to be better. She was on Plavix prior to admission. She does not seem to tolerate the combination with aspirin, Aggrenox would be a reasonable alternative. Job ID: [id number]
--- NOTE | 2018-11-04 11:32 | MRI ---
MRI brain without IV contrast: Multiplanar and multisequential imaging of brain obtained according to protocol. INDICATIONS: TIA COMPARISON: 10/02/2017 FINDINGS: Ventricles have normal size shape and position. Mild cortical atrophy. Mild chronic ischemic white matter change. No evidence of restricted diffusion. No evidence of mass or edema. Intracranial internal carotid arteries, proximal cerebral arteries, and basilar arteries show normal flow voids. Dural venous sinuses appear patent. Visualized paranasal sinuses and mastoids appear clear. Orbits appear unremarkable. Bony calvarium and soft tissues of the scalp appear unremarkable. IMPRESSION: Mild chronic ischemic white matter change. No evidence of acute infarct.
[2018-11-04] MEDS: HumaLOG 300 UNITS/3 ML VIAL SC PRN (12:33)
[2018-11-04] MEDS: Acetaminophen 325 MG TAB PO PRN ×2 (14:12→21:41)
--- NOTE | 2018-11-04 17:24 | ULT ---
BILATERAL CAROTID DUPLEX ULTRASOUND: HISTORY: CVA TECHNIQUE: Grayscale, color-flow and spectral Doppler ultrasound imaging of the extracranial carotid artery syst ems was performed bilaterally. FINDINGS: No significant plaque formation or intimal wall thickening is seen. The peak systolic velocity in the right ICA measures 88 cm/s. The peak systolic velocity in the left ICA measures 89 cm/s. Vertebral flow: antegrade, bilaterally. IMPRESSION: No hemodynamically significant stenosis of Both ICAs.
[2018-11-04] MEDS ORDERED: Insulin Glargine 15 UNITS in Pre-Filled Syringe 1 EACH SC SCH (21:00)
[2018-11-04] MEDS: Insulin Glargine 20 UNITS in Pre-Filled Syringe 1 EACH SC SCH (21:38)
[2018-11-04] MEDS: Atorvastatin Calcium 40 MG TAB PO SCH (21:38)
[2018-11-05 04:53] LABS: #Basophils 0.1 thou/uL (0.0-0.2); #Eosinphils 0.3 thou/uL (0.0-0.7); #Lymphocytes 3.2 thou/uL (1.20-3.40); #Monocytes 0.8 thou/uL (0.11-0.59); %Basophils 1.2 % (0.0-1.0); %Eosinophils 3.2 % (0.0-10.0); %Monocytes 8.8 % (0.0-10.0); %Neutrophils 52.8 % (42.0-75.0); Hemoglobin 9.2 g/dL (12.0-16.0); Mean Corpuscular HGB CONC 31.9 g/dL (32.0-36.0); Mean Corpuscular Hemoglobin 28.5 pg (27.0-31.0); Mean Corpuscular Volume 89.2 fL (78.0-98.0); Mean Platelet Volume 10.3 fL (7.4-10.4); Platelet Count 154 thou/uL (130-400); RBC Distribution Width 12.5 % (11.5-14.5); Red Blood Cell (RBC) Count 3.22 mill/uL (4.20-5.40); White Blood Cell (WBC) Count 9.4 thou/uL (4.8-10.8)
[2018-11-05 05:16] LABS: Anion Gap 12 mmol/L (10-20); BUN (Urea Nitrogen) 33 mg/dL (9.8-20.1); Calc. Creatinine Clearance 37 mL/min (70-130); Calcium 9.9 mg/dL (7.8-10.44); Carbon Dioxide 31 mmol/L (23-31); Chloride 103 mmol/L (98-107); Estimated GFR-MDRD 42; Glucose 125 mg/dL (83-110); Potassium 3.6 mmol/L (3.5-5.1); Sodium 142 mmol/L (136-145)
[2018-11-05] MEDS ORDERED: Non-Formulary Item 1 EACH (Linaclotide [Linzess] 290 MCG) PO SCH (07:30)
[2018-11-05] MEDS: HumaLOG 300 UNITS/3 ML VIAL SC SCH ×2 (08:30→17:04)
[2018-11-05] MEDS: Bumetanide 1 MG TAB PO SCH (08:30)
[2018-11-05] MEDS: Famotidine 20 MG TAB PO SCH (08:31)
[2018-11-05] MEDS: Clopidogrel Bisulfate 75 MG TAB PO SCH (08:31)
[2018-11-05] MEDS: Gabapentin 300 MG CAP PO SCH ×3 (08:31→20:35)
[2018-11-05] MEDS: Lisinopril 20 MG TAB PO SCH (08:33)
[2018-11-05] MEDS: Amlodipine 10 MG TAB PO SCH (08:34)
[2018-11-05] MEDS ORDERED: Sodium Chloride 0.9% 500 ML IV SCH (11:00)
[2018-11-05] MEDS ORDERED: Polyethylene Glycol 3350 17 GM Packet PO SCH (12:30)
[2018-11-05 12:43] VITALS: BMI 31.8
--- NOTE | 2018-11-05 15:03 | PDOC.PN ---
- Subjective Encounter Start Date: 11/05/18 Encounter Start Time: 10:00 Subjective: Patient examined, denies c/o. Reports she feels better today -: Reports she lives at home and has family close by to help - Objective Resuscitation Status - Order Detail: 11/04/18 08:46 Resuscitation Status Routine Co-Sign Provider: Resuscitation Status: FULL: Full Resuscitation Vital Signs & Weight: Vital Signs (12 hours) Temp Pulse Pulse Resp BP BP BP 11/05/18 13:00 151/70 H 11/05/18 12:00 97.7 F 52 L 17 11/05/18 08:41 51 L 189/100 H 11/05/18 08:34 57 L 134/70 11/05/18 08:33 134/70 11/05/18 07:55 98 F 57 L 16 134/70 11/05/18 05:40 141/59 H 11/05/18 03:55 98.6 F 53 L 16 Pulse Ox 11/05/18 13:00 11/05/18 12:00 98 11/05/18 08:41 11/05/18 08:34 11/05/18 08:33 11/05/18 07:55 95 11/05/18 05:40 11/05/18 03:55 98 Weight Admit Weight 78.925 kg Weight 78.925 kg I&O: 11/04/18 11/05/18 11/06/18 06:59 06:59 06:59 Intake Total 200 1100 500 Output Total 2 Balance 200 1098 500 Result Diagrams: 11/05/18 04:36 11/05/18 04:36 Additional Labs: Accuchecks 11/05/18 11/05/18 11/05/18 10:44 08:25 05:40 POC Glucose 123 H 145 H 128 H 11/04/18 11/04/18 20:15 16:41 POC Glucose 205 H 201 H Phys Exam - Physical Examination HEENT: PERRLA, moist MMs Neck: no nodes, no JVD Respiratory: clear to auscultation bilateral Cardiovascular: RRR Gastrointestinal: soft, non-tender Musculoskeletal: no edema, pulses present Neurological: non-focal, normal sensation Lymphatic: no nodes Psychiatric: normal affect, A&O x 3 Skin: normal turgor, cap refill <2 seconds Dx/Plan (1) JOSÉ (acute kidney injury) Code(s): N17.9 - ACUTE KIDNEY FAILURE, UNSPECIFIED Status: Acute Plan: Bolus of fluids today, encouraged po intake, will recheck in AM (2) CKD (chronic kidney disease) stage 3, GFR 30-59 ml/min Code(s): N18.3 - CHRONIC KIDNEY DISEASE, STAGE 3 (MODERATE) Status: Chronic (3) DM2 (diabetes mellitus, type 2) Status: Chronic Qualifiers: (4) HLD (hyperlipidemia) Code(s): E78.5 - HYPERLIPIDEMIA, UNSPECIFIED Status: Chronic Qualifiers: (5) HTN (hypertension) Code(s): I10 - ESSENTIAL (PRIMARY) HYPERTENSION Status: Chronic Qualifiers: (6) History of CVA (cerebrovascular accident) Code(s): Z86.73 - PRSNL HX OF TIA (TIA), AND CEREB INFRC W/O RESID DEFICITS Status: Chronic - Plan cont current plan of care, PT/OT Desires to go home, order placed for detention/PT -: Awaiting Echo results, MRI and carotid dopplers negative -: Will recheck kidney function in AM, creatinine 1.45 today * .
[2018-11-05] MEDS: Atorvastatin Calcium 40 MG TAB PO SCH (20:35)
[2018-11-05] MEDS: Polyethylene Glycol 3350 17 GM Packet PO SCH (20:36)
[2018-11-05] MEDS: Insulin Glargine 20 UNITS in Pre-Filled Syringe 1 EACH SC SCH (21:27)
[2018-11-06 05:30] LABS: Anion Gap 11 mmol/L (10-20); Calc. Creatinine Clearance 40 mL/min (70-130); Calcium 9.7 mg/dL (7.8-10.44); Carbon Dioxide 29 mmol/L (23-31); Chloride 105 mmol/L (98-107); Estimated GFR-MDRD 46; Glucose 86 mg/dL (83-110); Potassium 3.6 mmol/L (3.5-5.1); Sodium 141 mmol/L (136-145)
[2018-11-06 06:00] LABS: BUN (Urea Nitrogen) 32 mg/dL (9.8-20.1)
[2018-11-06] MEDS: Famotidine 20 MG TAB PO SCH (09:27)
[2018-11-06] MEDS: Gabapentin 300 MG CAP PO SCH ×2 (09:27→16:30)
[2018-11-06] MEDS: Clopidogrel Bisulfate 75 MG TAB PO SCH (09:27)
[2018-11-06] MEDS: Bumetanide 1 MG TAB PO SCH (09:27)
[2018-11-06] MEDS: Polyethylene Glycol 3350 17 GM Packet PO SCH (09:28)
[2018-11-06] MEDS: Amlodipine 10 MG TAB PO SCH (09:30)
[2018-11-06] MEDS: Lisinopril 20 MG TAB PO SCH (09:31)
[2018-11-06] MEDS: HumaLOG 300 UNITS/3 ML VIAL SC SCH ×2 (09:33→18:03)
[2018-11-06] MEDS: HumaLOG 300 UNITS/3 ML VIAL SC PRN ×2 (11:46→18:04)
[2018-11-06 15:58] VITALS: TEMP 98.7
[2018-11-06 17:05] VITALS: BP 140/65
--- NOTE | 2018-11-10 15:19 | EKG ---
Test Reason : Blood Pressure : / mmHG Vent. Rate : 055 BPM Atrial Rate : 055 BPM P-R Int : 216 ms QRS Dur : 094 ms QT Int : 508 ms P-R-T Axes : 081 -22 045 degrees QTc Int : 485 ms Sinus bradycardia with 1st degree A-V block with Premature atrial complexes Moderate voltage criteria for LVH, may be normal variant Abnormal ECG Confirmed by MIRANDA SILVA DO ([id number]), editor managing newspaper STEVEN MORSE ([id number]) on 11/10/2018 3:19:07 PM Referred By: Confirmed By:MIRANDA SILVA DO
== END 2018-11-06 19:00 | disposition home health service (06) ==
LOC: ERS 15:35 → ERHOLD 17:25 → 2SE 20:26
PROVIDERS: ADMIT Internal Medicine; ATTEND Internal Medicine
DX: R20.0 Anesthesia of skin (principal); R53.1 Weakness; E78.5 Hyperlipidemia, unspecified; M19.90 Unspecified osteoarthritis, unspecified site; I13.0 Hypertensive heart and chronic kidney disease with heart failure and stage 1 through stage 4 chronic kidney disease, or unspecified chronic kidney disease; E11.22 Type 2 diabetes mellitus with diabetic chronic kidney disease; N18.3 Chronic kidney disease, stage 3 (moderate); I50.9 Heart failure, unspecified; N17.9 Acute kidney failure, unspecified; Z86.73 Personal history of transient ischemic attack (TIA), and cerebral infarction without residual deficits; Z87.891 Personal history of nicotine dependence; Z79.02 Long term (current) use of antithrombotics/antiplatelets; Z79.4 Long term (current) use of insulin; Z79.899 Other long term (current) drug therapy; Z88.5 Allergy status to narcotic agent; Z88.8 Allergy status to other drugs, medicaments and biological substances
CPT/HCPCS: 70450; 70551; 71045; 80048 ×3; 80053; 80061; 82550; 82962 ×4; 83735; 83880; 84484; 85025 ×3; 85610; 85652; 85730; 86140; 87633; 93005; 93306; 93880; 96374; 97110; 97116 ×3; 97139; 99285; G0378 ×3; 36415; 36416; 81003; 81015; J1815; J1940